=== PATIENT | female | born 1990 | race Caucasian/White ===

== ENCOUNTER 2020-04-24 00:05 | Inpatient (IN) ==
[2020-04-24] MEDS ORDERED: OXYTOCIN/0.9 % SODIUM CHLORIDE 30 UNITS/500 ML BAG IV ONE ×2 (00:10→19:29)
[2020-04-24] MEDS ORDERED: MISOPROSTOL 100 MCG TABLET VG PRN (00:10)
[2020-04-24] MEDS ORDERED: DEXTROSE 5%-LACTATED RINGERS 1,000 ML IV PRN (00:10)
[2020-04-24] MEDS ORDERED: ONDANSETRON 4 MG TAB.RAPDIS PO PRN (00:10)
[2020-04-24 08:49] LABS: Hematocrit 38.4 % (37.0-47.0); Hemoglobin 13.1 gm/dL (12.5-16.0); Mean Cell Volume 90.4 fl (78-100); Mean Corpuscular Hemoglobin 30.8 pg (27-31); Mean Corpuscular Hgb Conc 34.1 g/dl (32-36); Mean Platelet Volume 11.1 fl (8-12.5); Neutrophil # 9.3 K/mm3 (1.3-6.0); Platelet Count 144 K/mm3 (150-450); Red Blood Count 4.25 M/mm3 (4.2-5.4); Red Cell Distribution Width 13.7 % (11.5-14.0); White Blood Count 12.5 K/mm3 (4.0-10.5)
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
[2020-04-24] MEDS: RINGER'S SOLUTION,LACTATED 1,000 ML IV ONE ×2 (11:35→14:02)
[2020-04-24] MEDS ORDERED: BUPIVACAINE HCL/0.9 % NACL/PF 250 ML EP PRN (11:43)
[2020-04-24] MEDS ORDERED: NALOXONE HCL 1 MG/1 ML SYRG IV PRN (11:43)
[2020-04-24] MEDS ORDERED: ONDANSETRON HCL/PF 2 MG/ML VIAL IV PRN (11:43)
[2020-04-24] MEDS ORDERED: fentaNYL CITRATE/PF 50 MCG/ML AMPUL IT SCH (11:45)
--- NOTE | 2020-04-24 12:49 | ANES ---
Post Anesthesia Discharge - Transfer of Care Transfer of Care handoff given to nurse: Yes - Anesthesia Post Op Note Anesthesia Post Op Note: Care transferred to OB RN
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
--- NOTE | 2020-04-24 12:50 | ANES ---
Post Anesthesia Assessment - Vital Signs Vitals: Last Vital Signs Temp 36.3 C 04/24/20 01:00 Pulse 87 04/24/20 01:00 Resp 16 04/24/20 01:00 BP 110/70 04/24/20 01:00 Pulse Ox 97 04/24/20 01:00 Airway Patency: Normal - Mental Status Level Of Consciousness: Awake - Pain Level Pain Score: 1 - N/V Assessment Nausea/Vomiting Presence: None Dehydration:: No
--- NOTE | 2020-04-24 12:51 | ANES ---
Anesthesia Procedure Note Procedure Note: ANESTHESIA PROCEDURE NOTE Date of Procedure: 04/24/2020 Time of procedure: 1240. Performed by: Fabian Mcduffie CRNA Adjunct Philosophy Faculty: None. Preprocedure diagnosis: Active labor. Post procedure diagnosis: Same. Procedure: Insertion of labor epidural. Indications: The patient is a 30-year-old multigravida female in active labor requesting labor epidural for pain management. Findings: See below. Details of the procedure: The patient was placed in a sitting position. Back was prepped with DuraPrep. Patient was then draped in a sterile fashion. Lidocaine 1% was infiltrated to the skin and subcutaneous tissues at the level of the L3 4 interspace. The epidural space was identified using a 18-gauge Tuohy needle with [id number] technique. 20 mcg fentanyl was given intrathecally using a 27 ga. spinal needle. Epidural catheter was inserted without difficulty. Negative test dose was elicited using 5 mL of 1.5% preservative-free lidocaine plus epinephrine 1 200,000. The epidural catheter was then taped and secured in place. EBL: Minimal. Fluids: N/A. Specimen: N/A. Post procedure condition: The patient tolerated the procedure well. No complications were noted. Thank you for this consultation. Mazariegos CRNA
[2020-04-24] MEDS ORDERED: GLYCERIN/WITCH HAZEL LEAF 40 APPL BOX TP PRN (19:29)
[2020-04-24] MEDS ORDERED: BISACODYL 10 MG SUPP.RECT RC PRN (19:29)
[2020-04-24] MEDS ORDERED: BENZOCAINE/MENTHOL 81 SPRAY CAN TP PRN (19:29)
[2020-04-24] MEDS ORDERED: IBUPROFEN 800 MG TABLET PO PRN (19:29)
[2020-04-24] MEDS ORDERED: SENNOSIDES 8.6 MG TABLET PO PRN (19:29)
[2020-04-24] MEDS ORDERED: HYDROCORTISONE 30 APPL TUBE TP PRN (19:29)
[2020-04-24] MEDS ORDERED: NON-FORMULARY 1 DOSE DOSE (Breast Pump device) SCH (19:30)
--- NOTE | 2020-04-24 19:42 | OR ---
Operative Report - Dictated Report Narrative: Spontaneous vaginal delivery of vigorously crying viable male at 1911 on 04/24/2020 with Apgars 9 and 9, weighing 3666 g in YANCY position. Cord clamping delayed approximately 1 minute Placenta delivered complete, intact, with three vessel cord Estimated blood loss: Less than 50 ml Anesthesia: Epidural Lacerations: None History for MU History for MU Definition: * The number of deliveries resulting in a live the patient experienced prior to current hospitalization * The previous delivery of live twins or any live multiple gestation is considered one live event. *If primagravida or nulliparous is documented select zero for the number of previous live births. Live Events: Live Events: 1
[2020-04-24] MEDS: IBUPROFEN 800 MG TABLET PO PRN (20:30)
[2020-04-24] MEDS: DOCUSATE SODIUM 100 MG CAPSULE PO SCH (22:08)
[2020-04-25] MEDS: IBUPROFEN 800 MG TABLET PO PRN ×2 (05:05→11:27)
--- NOTE | 2020-04-25 07:39 | PN ---
Subjective - Date and Time Seen Date: 04/25/20 Time: 07:38 Objective - Vitals Vitals: Last Vital Signs Temp 36.5 C 04/25/20 02:03 Pulse 71 04/25/20 02:03 Resp 16 04/25/20 02:03 BP 112/60 04/25/20 02:03 Pulse Ox 97 04/25/20 02:03 Patient denies complaints. Breast-feeding. Lochia wnl abdomen - soft, nontender Uterus -firm, at umbilicus - 1 No calf tenderness Impression: day #1 - s/p spontaneous vaginal delivery. Plan: Continue routine care - Abnormal Lab Findings Abnormal Lab Findings: Abnormal Lab Results 04/24/20 Range/Units 08:42 WBC 12.5 H (4.0-10.5) K/mm3 Plt Count 144 L (150-450) K/mm3 Immature Gran % (Auto) 1.40 H (0.001-0.429) % Immature Gran # (Auto) 0.17 H (0.000-0.0310) K/mm3 Lymphocytes % 13.6 L (20-51) % Monocytes % 9.8 H (0.0-9) % Neutrophils # 9.3 H (1.3-6.0) K/mm3 Monocytes # 1.2 H (0.0-1.0) k/mm3 Cauti Physician Documentation - Urinary Catheter Management Urethral (Conner) Date of Insertion: 04/24/20 Time of Insertion: 13:25 Date of Removal: 04/24/20 Time of Removal: 19:00 Assessment/Plan - Problems/Diagnosis (1) Elective induction of labor planned Problem: Acute (2) Anxiety Problem: Chronic (3) Anemia Problem: Chronic Qualifiers: Anemia type: iron deficiency Iron deficiency anemia type: inadequate dietary iron intake Qualified Code(s): D50.8 - Other iron deficiency anemias (4) Insomnia disorder, with non-sleep disorder mental comorbidity, recurrent Problem: Chronic (5) Depression Problem: Chronic Qualifiers: Depression Type: major depressive disorder Major depression recurrence: recurrent Active/Remission status: in remission of unspecified degree Qualified Code(s): F33.40 - Major depressive disorder, recurrent, in remission, unspecified
[2020-04-25] MEDS: DOCUSATE SODIUM 100 MG CAPSULE PO SCH ×2 (10:31→21:05)
[2020-04-25] MEDS: PRENATAL VITS96/IRON FUM/FOLIC 1 TAB TABLET PO SCH (10:32)
[2020-04-25] MEDS ORDERED: oxyCODONE HCL/ACETAMINOPHEN 1 TAB TABLET PO PRN (15:07)
[2020-04-26] MEDS: IBUPROFEN 800 MG TABLET PO PRN (04:44)
[2020-04-26 07:08] VITALS: BP 115/58
--- NOTE | 2020-04-26 09:03 | PN ---
Subjective - Date and Time Seen Date: 04/26/20 Time: 09:00 Objective - Vitals Vitals: Last Vital Signs Temp 36.4 C 04/26/20 07:05 Pulse 67 04/26/20 07:05 Resp 16 04/26/20 07:05 BP 115/58 04/26/20 07:05 Pulse Ox 100 04/26/20 07:05 Patient concerned about her anxiety/depression kicking in. Breast-feeding with some difficulty Lochia wnl abdomen - soft, nontender Uterus -firm, at umbilicus - 2 No calf tenderness Impression: day #2 - s/p spontaneous vaginal delivery. Difficulty breast-feeding. Anxiety/depression. Plan: Routine discharge instructions. Patient will meet with web development consultant today. We will restart her Prozac upon discharge. Cauti Physician Documentation - Urinary Catheter Management Urethral (Conner) Date of Insertion: 04/24/20 Time of Insertion: 13:25 Date of Removal: 04/24/20 Time of Removal: 19:00 Assessment/Plan - Problems/Diagnosis (1) Elective induction of labor planned Problem: Acute (2) Anxiety Problem: Chronic (3) Anemia Problem: Chronic Qualifiers: Anemia type: iron deficiency Iron deficiency anemia type: inadequate dietary iron intake Qualified Code(s): D50.8 - Other iron deficiency anemias (4) Insomnia disorder, with non-sleep disorder mental comorbidity, recurrent Problem: Chronic (5) Depression Problem: Chronic Qualifiers: Depression Type: major depressive disorder Major depression recurrence: recurrent Active/Remission status: in remission of unspecified degree Qualified Code(s): F33.40 - Major depressive disorder, recurrent, in remission, unspecified
--- NOTE | 2020-04-26 09:09 | DS ---
OB Discharge Summary (1) Elective induction of labor planned Status: Acute (2) Anxiety Status: Chronic (3) Anemia Status: Chronic Qualifiers: Anemia type: iron deficiency Iron deficiency anemia type: inadequate dietary iron intake Qualified Code(s): D50.8 - Other iron deficiency anemias (4) Insomnia disorder, with non-sleep disorder mental comorbidity, recurrent Status: Chronic (5) Depression Status: Chronic Qualifiers: Depression Type: major depressive disorder Major depression recurrence: recurrent Active/Remission status: in remission of unspecified degree Qualified Code(s): F33.40 - Major depressive disorder, recurrent, in remission, unspecified Delivery Date: 04/24/20 Delivery Time: 19:11 :: 2 Para:: 2 Gestational weeks:: 39 Gestational days:: 0 Intrapartum Procedures: Spontaneous Vaginal Delivery, Delivered /OP Complications: No Complications Discharge Diagnosis: Term -Delivered - Discharge Information Date of Discharge: 04/26/20 Hospital Course: 30-year-old 2 now para 2 admitted at 39w0d for elective induction of labor which went uneventfully. Her course was uncomplicated. Discharge Location: Home Disposition: Home self-care Condition: Good Referrals: Debbie Castillo, PAC [Primary Care Provider] - Activity on Discharge:: Activity as tolerated, Pelvic Rest Discharge Diet: General/regular food Additional Patient Instructions (free text): Azeb, your follow up appointment is with Dr. Ольга Rodriguez' follow up appointment is Nurse Garvey every 2 to 3 hours and on demand. Rest when he rest. Always lay him on his back to sleep in his own sleeping area. No extra pillows, blankets or stuffed animals. No Co sleeping. weight - 8 lb 1.2 oz Todays weight - 7 lb 9.5 oz Blood type - O+ Congratulations on your new addition. Please don't hesitate to call with any questions or concerns. [facility]- [phone]. [facility] - [phone]. Prescriptions (Any new or edited meds): FLUoxetine HCL [Fluoxetine HCl] 20 mg PO DAILY #30 cap Transmission Status: Pending to [facility] #[id number] Ibuprofen [Motrin] 200 - 800 mg PO Q6H PRN #100 tab PRN Reason: Pain Complete Home Medications List: Complete Home Medication List: prenat.vits,joshua,[id number] 1 tab PO DAILY 10/04/19 breast pump See Rx Instructions .ROUTE .MEDSUPPLY #1 ea 03/29/20 Ibuprofen [Motrin] 200 - 800 mg PO Q6H PRN #100 tab 04/25/20 FLUoxetine HCL [Fluoxetine HCl] 20 mg PO DAILY #30 cap 04/26/20 - Plan Discharge to:: Home Follow up in office in:: 3-4 weeks - Information Weight (Grams): 3,666 Infant Sex: Male Score 1 min: 9 Score 5 min: 9 Complications: None
[2020-04-26] MEDS: DOCUSATE SODIUM 100 MG CAPSULE PO SCH (13:15)
[2020-04-26] MEDS: PRENATAL VITS96/IRON FUM/FOLIC 1 TAB TABLET PO SCH (13:15)
== END 2020-04-26 13:00 | disposition home or self-care (01) | DRG 806 ==
LOC: OB 00:05
PROVIDERS: ADMIT Obstetrics & Gynecology; ATTEND Obstetrics & Gynecology